=== PATIENT | male | born 1970 | race Caucasian/White ===

== ENCOUNTER 2017-07-16 10:10 | Emergency (ER) | payer SELFPAY ==
[2017-07-16 10:16] VITALS: BP 120/75; BMI 19.8
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
== END 2017-07-16 11:20 | disposition home or self-care (01) ==
LOC: ER 10:30
DX: S22.32XA Fracture of one rib, left side, initial encounter for closed fracture (principal); X58.XXXA Exposure to other specified factors, initial encounter; Y92.9 Unspecified place or not applicable
CPT/HCPCS: 71111; 99282